=== PATIENT | female | born 2000 | race Caucasian/White ===

== ENCOUNTER 2021-08-13 17:55 | Emergency (ER) | payer MEDICAID ==
[~2021-08-13] VITALS: Ht 160 cm; Wt 70.0 kg
[2021-08-13] MEDS ORDERED: ACETAMINOPHEN 325MG TABLET PO PRN (18:30)
[2021-08-13 19:53] LABS: CLARITY URINE CLOUDY (CLEAR); COLOR URINE YELLOW (YELLOW); KETONES URINE NEGATIVE (NEGATIVE); LEUKOCYTE ESTERASE URINE 3+ (NEGATIVE); NITRITE URINE NEGATIVE (NEGATIVE); OCCULT BLOOD URINE 2+ (NEGATIVE); PROTEIN URINE NEGATIVE (NEGATIVE); SPECIFIC GRAVITY URINE 1.015 (1.005-1.030); UROBILINOGEN URINE 0.2 E.U./dL (0.2-1.0)
[2021-08-13 19:57] LABS: BASOPHILS % 0.4 % (0.0-2.0); EOSINOPHILS % 0.4 % (0.0-5.0); HEMATOCRIT. 38.5 % (36.0-48.0); HEMOGLOBIN. 13.2 g/dL (12.0-16.0); LYMPHOCYTES % 20.9 % (20.0-50.0); MEAN CORPUSCULAR HEMOGLOBIN 28.2 pg (28.0-32.0); MEAN CORPUSCULAR VOLUME 82.5 fL (81.0-99.0); MONOCYTES % 6.7 % (2.0-8.0); NEUTROPHILS % 71.6 % (40.0-76.0); PLATELET 344 x1000/uL (130-400); RED BLOOD CELL COUNT 4.67 mill/uL (4.2-5.4); RED CELL DISTRIBUTION WIDTH 13.4 % (11.6-14.6)
[2021-08-13 20:03] LABS: CHLORIDE 107 mEq/L (98-107)
[2021-08-13 20:27] LABS: B-HCG QUANTITATIVE 6256 mIU/mL (<3)
[2021-08-13] MEDS ORDERED: TOPUD MT (22:35)
[2021-08-13] MEDS ORDERED: NITR-87 MT (22:35)
[2021-08-13 22:45] VITALS: BP 131/74
== END 2021-08-13 22:45 | disposition home or self-care (01) ==
LOC: ER 17:55
DX: O23.41 Unspecified infection of urinary tract in pregnancy, first trimester (principal); N39.0 Urinary tract infection, site not specified; O02.1 Missed abortion; O26.891 Other specified pregnancy related conditions, first trimester; M54.2 Cervicalgia; M25.512 Pain in left shoulder; M25.551 Pain in right hip; Z3A.10 10 weeks gestation of pregnancy; V43.52XA Car driver injured in collision with other type car in traffic accident, initial encounter; Y93.89 Activity, other specified; Y92.488 Other paved roadways as the place of occurrence of the external cause
CPT/HCPCS: 36415; 72040; 72070; 72100; 73030; 73502; 76801; 80053; 81003; 81025; 84702; 85025; 86850; 86900; 99285